=== PATIENT | female | born 1990 | race Caucasian/White ===

== ENCOUNTER 2018-07-28 11:37 | Emergency (ER) | payer OTHER ==
[~2018-07-28] VITALS: Ht 160 cm; Wt 73.0 kg
[2018-07-28 11:50] VITALS: BP 134/81; Ht 160 cm; Wt 73.0 kg
== END 2018-07-28 14:10 | disposition left against medical advice (07) ==
LOC: ED 11:37
DX: Z53.21 Procedure and treatment not carried out due to patient leaving prior to being seen by health care provider (principal)

== ENCOUNTER 2018-10-30 01:50 | Emergency (ER) | payer OTHER ==
[~2018-10-30] VITALS: Ht 160 cm; Wt 78.6 kg
[2018-10-30 02:09] VITALS: Ht 160 cm; Wt 78.6 kg
[2018-10-30 03:01] LABS: BASOPHIL % 0.8 % (0-2); PLATELET COUNT 258 x10^3mcL (130-400); RED CELL DISTRIBUTION WIDTH 12.7 % (11.5-14.5)
[2018-10-30 03:49] LABS: CALCIUM 8.8 mg/dL (8.5-10.1); CARBON DIOXIDE 22.2 mmol/L (21-32); CHLORIDE SERUM 106 mmol/L (98-107); CREATININE SERUM 0.9 mg/dL (0.6-1.0); GFR1 > 60 mL/min; GLUCOSE SERUM 100 mg/dL (74-106); POTASSIUM SERUM 3.4 mmol/L (3.5-5.1); SODIUM SERUM 143 mmol/L (136-145)
[2018-10-30 03:54] LABS: ALKALINE PHOSPHATASE 45 U/L (46-116); ALT/SGPT 77 U/L (14-59); AST/SGOT 51 U/L (15-37); BILIRUBIN TOTAL 0.21 mg/dL (0.20-1.00); TOTAL PROTEIN, SERUM 7.2 g/dL (6.4-8.2)
[2018-10-30 03:57] LABS: ALBUMIN 3.2 g/dL (3.4-5.0)
[2018-10-30 07:01] VITALS: BP 119/69
[2018-10-30 07:13] LABS: AMPHETAMINE QUAL UR NONE DETECTED (See below)
== END 2018-10-30 07:26 | disposition home or self-care (01) ==
LOC: ED 01:50
PROVIDERS: Emergency Medicine
DX: R00.2 Palpitations (principal); T40.5X5A Adverse effect of cocaine, initial encounter; Y92.89 Other specified places as the place of occurrence of the external cause
CPT/HCPCS: J2060; J7030

== ENCOUNTER 2019-06-27 14:01 | Emergency (ER) | payer OTHER ==
[~2019-06-27] VITALS: Ht 160 cm; Wt 77.1 kg
[2019-06-27 14:19] VITALS: Ht 160 cm; Wt 77.1 kg
[2019-06-27 17:13] VITALS: BP 125/78
== END 2019-06-27 17:13 | disposition home or self-care (01) ==
LOC: ED 14:01
DX: K52.9 Noninfective gastroenteritis and colitis, unspecified (principal)
CPT/HCPCS: J1885; J2405; J7030

== ENCOUNTER 2019-09-20 01:29 | Emergency (ER) | payer SELFPAY ==
[~2019-09-20] VITALS: Ht 160 cm; Wt 72.6 kg
[2019-09-20 01:34] VITALS: Ht 160 cm; Wt 72.6 kg
[2019-09-20 02:16] LABS: BASOPHIL % 1.4 % (0-2); PLATELET COUNT 265 x10^3mcL (130-400); RED CELL DISTRIBUTION WIDTH 12.5 % (11.5-14.5)
[2019-09-20 02:22] LABS: CHLORIDE SERUM 100 mmol/L (98-107); CREATININE SERUM 0.8 mg/dL (0.6-1.0); GFR1 > 60 mL/min; GLUCOSE SERUM 88 mg/dL (74-106); POTASSIUM SERUM 3.6 mmol/L (3.5-5.1); SODIUM SERUM 137 mmol/L (136-145)
[2019-09-20 02:28] LABS: ALKALINE PHOSPHATASE 46 U/L (46-116); ALT/SGPT 105 U/L (14-59); AMYLASE 36 U/L (25-115); AST/SGOT 98 U/L (15-37); BILIRUBIN TOTAL 0.37 mg/dL (0.20-1.00); LIPASE 135 IU/L (73-393); TOTAL PROTEIN, SERUM 7.8 g/dL (6.4-8.2)
[2019-09-20 02:30] LABS: ALBUMIN 3.3 g/dL (3.4-5.0)
[2019-09-20 05:13] VITALS: BP 108/66
== END 2019-09-20 05:54 | disposition home or self-care (01) ==
LOC: ED 01:29
PROVIDERS: Emergency Medicine
DX: K29.20 Alcoholic gastritis without bleeding (principal); F10.239 Alcohol dependence with withdrawal, unspecified; Y90.8 Blood alcohol level of 240 mg/100 ml or more
CPT/HCPCS: C9113; G0480; J2060; J2405; J7030